=== PATIENT | female | born 1985 | race Caucasian/White ===

== ENCOUNTER 2017-07-08 09:23 | Day surgery (SDC) | payer BC ==
[~2017-07-08] VITALS: Ht 157.5 cm; Wt 105.2 kg
--- NOTE | ~2017-07-08 | OP ---
Record Of Operation [facility] [address] [place] [id number] NAME: SARMAD MARTINEZ : 81 STATUS : REG [facility]#: [id number] AGE: 32 ADM/REG DATE : 07/08/17 MR#: [id number] REPORT SERV DATE: 07/08/17 DICTATED BY: CHRISS FINNEY DATE: 07/08/17 REPORT STATUS : Draft TRANSCRIBED BY: MODL DATE: 07/08/17 DATE OF PROCEDURE: 07/08/2017 PREOPERATIVE DIAGNOSIS: 5 mm right mid ureteral calculus. POSTOPERATIVE DIAGNOSIS: 5 mm right mid ureteral calculus. PROCEDURE: Extracorporeal shock wave lithotripsy of 5 mm right mid ureteral calculus. ANESTHESIA: General. BLOOD LOSS: None. DRAINS: None. INDICATION: Ms. Martinez is a 32-year-old female with a symptomatic 5 mm right mid ureteral calculus. She has had it for a week and has not moved at all. TECHNIQUE: The patient was identified, brought to the lithotripsy suite, and laid on the Dornier Delta III lithotripsy table. The stone was identified with fluoroscopy and the beam was focused on the stone using biplanar fluoroscopy. Adequate anesthesia was achieved and we initiated shockwave therapy starting at energy level of 1.0 and advancing the energy level of 8.0. A total of 2500 shocks were administered at a constant shock rate of 90 shocks per minute. Intermittent fluoroscopy was used to maintain focus on the stone. The stone appeared to fragment nicely. After 2500 shocks, the procedure was terminated. The patient was awakened, extubated, and taken to the recovery unit in a stable and satisfactory condition. FATOU/MIRZA Chriss Finney M.D. / [id number] CC: Lucero Reeves M.D.
[~2017-07-08 09:23] MED LIST: FLOMAX4 PO; MACROBID PO; PCET PO; PROAIR HFA INH; TORATAB PO; ZOFRAN4 PO
[2017-07-08 10:26] LABS: BASOPHILS 0.1 %; BASOPHILS ABSOLUTE 0.01 10/3/uL (0.0-0.16); EOSINOPHILS 3.4 %; EOSINOPHILS ABSOLUTE 0.33 10/3/uL (0.0-0.53); HEMATOCRIT 38.7 % (36.0-48.0); HEMOGLOBIN 12.7 g/dL (12.0-16.0); IMMATURE GRANULOCYTES 0.2 %; IMMATURE GRANULOCYTES ABSOLUTE 0.02 10/3/uL (0.0-0.11); LYMPHOCYTES 25.4 %; LYMPHOCYTES ABSOLUTE 2.44 10/3/uL (0.67-4.30); MEAN CORPUS HGB CONC 32.8 g/dL (32.0-36.0); MEAN CORPUSCULAR HEMOGLOB 28.4 pg (26.0-34.0); MEAN CORPUSCULAR VOLUME 86.6 fL (80-100); MONOCYTES 7.4 %; MONOCYTES ABSOLUTE 0.71 10/3/uL (0.21-1.20); NEUTROPHILS 63.5 %; NEUTROPHILS ABSOLUTE 6.08 10/3/uL (2.02-8.40); PLATELET COUNT 384 10/3/uL (150-400); RBC DISTRIBUTION WIDTH 12.2 % (12.0-16.0); RED CELL COUNT 4.47 10/6/uL (4.0-5.6); WHITE BLOOD CELLS 9.6 10/3/uL (4.5-10.5)
[2017-07-08 10:28] LABS: MANUAL DIFF NO %
[2017-07-08 10:30] LABS: ASCORBIC ACID (UR NOT ORDER) NEG (NEG); BILIRUBIN, URINE NEGATIVE (NEG); KETONE, URINE NEGATIVE (NEG); LEUKOCYTE ESTERASE(NOT OR NEG (NEG); WBC (NOT ORDERED) (RFLEX) 3 (0-5)
[2017-07-08 10:36] LABS: BUN (BLOOD UREA NITROGEN) 9 MG/DL (6-23); CALCIUM, SERUM 8.7 MG/DL (8.5-10.4); CHLORIDE, SERUM 105 MMOL/L (96-112); CO2 (CARBON DIOXIDE) 27 MMOL/L (24-34); GFR AFRICAN AMERICAN 76 ML/MIN (>=60); GFR NON AFRICAN AMERICAN 65 ML/MIN (>=60); GLUCOSE, SERUM 81 MG/DL (60-99); POTASSIUM, SERUM 4.7 MMOL/L (3.5-5.3); SODIUM, SERUM 138 MMOL/L (135-148)
== END 2017-07-08 16:41 | disposition home or self-care (01) ==
LOC: SDC 09:23
PROVIDERS: Urology
PROC: 0TF6XZZ Fragmentation in Right Ureter, External Approach (ICD-10-PCS; principal; 2017-07-08)
DX: N20.1 Calculus of ureter (principal); J45.909 Unspecified asthma, uncomplicated; E66.01 Morbid (severe) obesity due to excess calories; Z68.41 Body mass index [BMI] 40.0-44.9, adult; Z79.899 Other long term (current) drug therapy
CPT/HCPCS: 74000; 80048; 81001; 84703; 85025; J2250; J2405; J2710; J3010